=== PATIENT | female | born 1945 | race Caucasian/White ===

== ENCOUNTER 2016-12-21 13:03 | Emergency (ER) | payer OTHER, MEDICARE ==
[~2016-12-21] VITALS: Ht 165.1 cm; Wt 65.6 kg
[~2016-12-21 13:03] MED LIST: FLONASE16 G1 BOTH NARES; LEVOTHYROXINE100 MCG PO; XARELTO15 MG PO
[2016-12-21 14:10] LABS: EOSINOPHIL (%) 3.2 % (0-5); EOSINOPHIL COUNT 0.2 K/uL (0-0.3); HEMATOCRIT 37.5 % (36.0-46.0); LYMPHOCYTE COUNT 1.7 K/uL (1.0-2.8); MCH 29.6 PG (29.0-34.0); MCHC 34.1 G/DL (30.0-36.0); MCV 86.8 FL (83-99); MEAN PLAT.VOLUME 8.6 uM^3 (9.5-12.4); MONOCYTE (%) 13.6 % (3-12); MONOCYTE COUNT 0.6 K/uL (0-0.8); NEUTROPHIL (%) 46.9 % (45-76); NEUTROPHIL COUNT 2.2 K/uL (1.8-6.4); PLATELET COUNT 238 K/uL (156-360); RBC DIS.WIDTH-SD 40.1 % (39-53); RED BLOOD COUNT 4.32 M/uL (3.80-5.20); WHITE BLOOD COUNT 4.7 K/uL (4.1-10.2)
[2016-12-21 14:21] LABS: CHLORIDE 108 mEq/L (99-109); POTASSIUM 3.5 mEq/L (3.7-5.4); SODIUM 140 mEq/L (136-147)
[2016-12-21 14:23] LABS: GLUCOSE 88 mg/dL (70-99)
[2016-12-21 14:25] LABS: ANION GAP 12 MEQ/L (2-14); INTER. NORMALIZED RATIO 1.1; PROTHROMBIN TIME 11.4 (9.2-11.2)
[2016-12-21 14:27] LABS: GFR ESTIMATE (CALCULATED) > 59 mL/min/
[2016-12-21 14:28] LABS: UREA NITROGEN (BUN) 17 mg/dL (9-23)
[2016-12-21 14:34] LABS: TROP-I INTERPRETATION NEGATIVE; TROPONIN-I < 0.01 ng/mL (0.0-0.30)
[2016-12-21] MEDS ORDERED: XARELTO20 MG PO (16:23)
[2016-12-21] MEDS ORDERED: TRAZODONE HCL50 MG PO (16:24)
[2016-12-21 17:25] VITALS: BP 108/72
== END 2016-12-21 17:39 | disposition home or self-care (01) ==
LOC: EME 13:03
PROVIDERS: Emergency Medicine
DX: M79.662 Pain in left lower leg (principal); M79.1 Myalgia; R07.9 Chest pain, unspecified; Z86.718 Personal history of other venous thrombosis and embolism; Z88.1 Allergy status to other antibiotic agents; Z88.8 Allergy status to other drugs, medicaments and biological substances
CPT/HCPCS: 71010; 80048; 84484; 85025; 85610; 85730; 93005; 93971; 99281; 99284

== ENCOUNTER 2017-06-15 09:08 | Observation (INO) | payer OTHER, MEDICARE ==
[~2017-06-15] VITALS: Ht 165.1 cm; Wt 69.3 kg
[~2017-06-15 09:08] MED LIST changes: +TRAZODONE HCL50 MG PO; +XARELTO20 MG PO
[2017-06-15] MEDS ORDERED: SINGULAIR10 MG PO (09:37)
[2017-06-15 09:57] LABS: HEMATOCRIT 39.9 % (36.0-46.0); MCH 29.5 PG (29.0-34.0); MCHC 33.6 G/DL (30.0-36.0); MCV 87.7 FL (83-99); MEAN PLAT.VOLUME 8.5 uM^3 (9.5-12.4); PLATELET COUNT 193 K/uL (156-360); RBC DIS.WIDTH-CV 12.8 % (11.8-14.6); RBC DIS.WIDTH-SD 41.4 % (39-53); RED BLOOD COUNT 4.55 M/uL (3.80-5.20); WHITE BLOOD COUNT 4.7 K/uL (4.1-10.2)
[2017-06-15 10:02] LABS: INTER. NORMALIZED RATIO 1.3; PROTHROMBIN TIME 14.8 SEC (10.2-12.9)
[2017-06-15 10:04] LABS: PTT 37.1 SEC (25-37)
[2017-06-15 10:06] LABS: CHLORIDE 107 mEq/L (99-109); POTASSIUM 3.9 mEq/L (3.7-5.4); SODIUM 139 mEq/L (136-147)
[2017-06-15 10:09] LABS: ANION GAP 7 MEQ/L (2-14)
[2017-06-15 10:12] LABS: GFR ESTIMATE (CALCULATED) > 59 mL/min/; GLUCOSE 86 mg/dL (70-99)
[2017-06-15 10:23] LABS: TROP-I INTERPRETATION NEGATIVE; TROPONIN-I < 0.01 ng/mL (0.0-0.30)
[2017-06-15 10:24] LABS: UREA NITROGEN (BUN) 13 mg/dL (9-23)
[2017-06-15 10:29] LABS: D-DIMER ELISA < 150.00 ng/mLDDU (<230)
[2017-06-15 10:52] LABS: ADD MIUA? YES; BILIRUBIN NEGATIVE; BLOOD MODERATE; COLOR YELLOW ((YELLOW)); GLUCOSE (STRIP) NEGATIVE; KETONES NEGATIVE; LEUKOCYTES NEGATIVE; NITRITE NEGATIVE; PROTEIN (STRIP) NEGATIVE; SPECIFIC GRAVITY 1.012 (1.000-1.030); UROBILINOGEN 0.2 MG/DL (0.2-1.0)
[2017-06-15 10:54] LABS: BACTERIA NONE SEEN /HPF; EPITHELIAL CELLS RARE /HPF; MUCUS TRACE /LPF; RED BLOOD CELLS 0-5 /HPF (0-5); UCUL ADDED? NO; WHITE BLOOD CELLS 0-5 /HPF (0-5)
[2017-06-15] MEDS ORDERED: OMEPRAZOLE40 M1 PO (11:33)
[2017-06-15 12:50] LABS: TROP-I INTERPRETATION NEGATIVE; TROPONIN-I < 0.01 ng/mL (0.0-0.30)
[2017-06-15 13:01] VITALS: BP 94/55
[2017-06-15 18:47] LABS: TROP-I INTERPRETATION NEGATIVE; TROPONIN-I 0.01 ng/mL (0.0-0.30)
[2017-06-15 20:30] VITALS: BP 107/58
[2017-06-16] VITALS: BP 106/55
[2017-06-16 04:42] VITALS: BP 95/55
[2017-06-16 07:46] VITALS: BP 113/67
== END 2017-06-16 11:01 | disposition home or self-care (01) ==
LOC: EME 09:08 → EDOF 11:27 → ENRESERV 11:31 → 5WEST 12:50 → ENPENDDIS 06-16 10:28 → 5WEST 06-16 11:01
PROVIDERS: Emergency Medicine; Internal Medicine
DX: R06.02 Shortness of breath (principal); R07.89 Other chest pain; R94.31 Abnormal electrocardiogram [ECG] [EKG]; E03.9 Hypothyroidism, unspecified; Z86.711 Personal history of pulmonary embolism; Z86.718 Personal history of other venous thrombosis and embolism; Z79.01 Long term (current) use of anticoagulants; Z82.49 Family history of ischemic heart disease and other diseases of the circulatory system; Z88.0 Allergy status to penicillin; Z88.8 Allergy status to other drugs, medicaments and biological substances
CPT/HCPCS: 71010; 80048; 81003; 84484; 85027; 85379; 85610; 85730; 93005; G0378; J2270